=== PATIENT | male | born 1980 | race Caucasian/White ===

== ENCOUNTER 2018-01-16 09:46 | Day surgery (SDC) | payer MEDICARE, OTHER ==
[~2018-01-16 09:46] MED LIST: ACETAMINOPHEN 1,000 MG/100 ML BTL IV ONE; CLINDAMYCIN PHOS/D5W 900MG 900 MG/50 ML BAG IVPB ONE; MORPHINE SULFATE 4 MG/ML VIAL ONE
[2018-01-16] MEDS ORDERED: PROPOFOL 10 MG/ML VIAL IV ONE (09:47)
[2018-01-16] MEDS ORDERED: LIDOCAINE 2% MDV (20MG/ML) 20ML VIAL IV ONE (09:47)
[2018-01-16] MEDS ORDERED: METHYLPREDNISOLONE 40MG/VIAL IM ONE (09:47)
[2018-01-16] MEDS ORDERED: BUPIVACAINE 0.5% W/EPI MPF 30 ML VIAL IVP ONE (09:47)
[2018-01-16] MEDS ORDERED: SEVOFLURANE 250 ML INH ONE (09:47)
[2018-01-16] MEDS ORDERED: MORPHINE SULFATE 4 MG/ML VIAL IVP ONE (09:47)
[2018-01-16] MEDS ORDERED: EPHEDRINE SULFATE 50 MG/ML ML IV ONE (09:47)
[2018-01-16] MEDS ORDERED: DEXMEDETOMIDINE HCL 200 MCG/2 ML VIAL IV ONE (09:47)
[2018-01-16] MEDS ORDERED: KETOROLAC 30 MG/ML VIAL IVP ONE (09:47)
--- NOTE | 2018-01-17 11:30 | Operative Note ---
DATE OF SURGERY: 01/16/2018 PREOPERATIVE DIAGNOSIS: Internal derangement, right knee. POSTOPERATIVE DIAGNOSES: 1. Unstable cartilage lesion of the patella with grade 3-4 change. 2. Fiber cartilage in notch. 3. Moderate synovitis of the pouch. 4. Tear of the posteromedial horn of the lateral meniscus. 5. Unstable cartilage anteromedial aspect of the lateral tibial plateau. OPERATION: 1. Right knee arthroscopy with partial lateral meniscectomy. 2. Right knee arthroscopy with limited synovectomy. 3. Right knee arthroscopy with chondroplasty of the patella and primarily lateral femoral condyle. Staff Surgeon: Jc Campos MD Anesthesia: General. Preparation: Chloraprep. Individual Considerations: None. PROCEDURE: The patient was taken to the operating room and placed supine on the operating room table. He had a successful induction with general anesthetic. His right lower extremity was prepped and draped in the usual fashion. The patient had a superolateral inflow cannula placed. Skin was infiltrated with 0.5% Marcaine with epinephrine prior. A clear effusion was drained. The knee was inflated with normal saline. An inferomedial and an inferolateral lateral portal were made in a similar fashion. The arthroscope was introduced through the inferolateral portal up into the pouch. The patellofemoral joint showed basically highly unstable cartilage of the patella with peeling cartilage almost with strands about 1 x 1 cm. This was smoothed off with a shaver and I would say this left maybe the central 2/3 of it exposed bone and the remaining was just trimmed from the shaving. In the notch, there was fiber cartilage present, nothing really to debride. Moderate synovitis in just the pouch. This was debrided with a shaver. The medial side looked pretty good. Medial femoral condyle and medial tibial plateau were intact. Cruciates were normal laterally. It looked like the cartilage transplant was because the anteromedial aspect of the lateral tibial plateau was basically peeling off. I debrided back with a shaver to a stable cartilage. There was a tear of the posteromedial horn which debrided out with a shaver and baskets. The femoral condyle was intact. The knee was irrigated out with saline to remove loose floating debris. Portals were closed with natalia and 20 mL of 0.5% Marcaine with epinephrine along with 4 mg of morphine and 40 mg of Depo-Medrol were injected into the knee. A sterile bulky compressive dressing was applied. The patient tolerated procedure well. Needle and sponge counts were correct. Estimated blood loss was minimal. He was taken back to recovery in good condition. There were no complications. SELINA
== END 2018-01-16 15:05 | disposition home or self-care (01) ==
LOC: SUR 09:46
PROVIDERS: ATTEND Orthopaedic Surgery
DX: S83.281A Other tear of lateral meniscus, current injury, right knee, initial encounter (principal); M24.10 Other articular cartilage disorders, unspecified site; M25.361 Other instability, right knee; M65.88 Other synovitis and tenosynovitis, other site
CPT/HCPCS: 29881; 29875; 01400; J1885; J3490 ×2; J2270; J1030